=== PATIENT | female | born 1995 | race Caucasian/White ===

== ENCOUNTER 2018-10-12 17:39 | Emergency (ER) | payer SELFPAY ==
[2018-10-12 19:46] VITALS: O2SAT 100
[2018-10-12 19:53] LABS: SQUAMOUS EPITHIAL < 1 /hpf (0-5); URINE BILIRUBIN NEGATIVE (NEGATIVE); URINE BLOOD NEGATIVE (NEGATIVE); URINE CLARITY Clear (Clear); URINE COLOR Yellow (YELLOW); URINE GLUCOSE (UA) NORMAL (Normal); URINE LEUKOCYTE ESTERASE NEG Leu/uL (Negative); URINE PROTEIN NEGATIVE (NEGATIVE); URINE UROBILINOGEN NORMAL mg/dL (0.2-1.0)
[2018-10-12 20:03] LABS: HCG,QUALITATIVE URINE NEGATIVE (NEGATIVE)
[2018-10-12 20:06] LABS: BARBITURATES, UR NEGATIVE (NEGATIVE); BENZODIAZEPINES, UR NEGATIVE (NEGATIVE); OPIATES, UR NEGATIVE (NEGATIVE); PHENCYCLIDINE, UR NEGATIVE (NEGATIVE)
--- NOTE | 2018-10-12 20:27 | C.PDOC ---
History Of Present Illness Patient is a 23 year old female who presents to the ED c/o sudden onset chills, described as being "cold then hot" since this morning. Patient notes associated sweat episodes, feels as if she has irregular episodes, and states that she has been shaking so much she almost lost consciousness. She denies any vomiting, diarrhea, rash, fever, CP, SOB, numbness, weakness, or recent travel. Time Seen by Provider: 10/12/18 18:30 Chief Complaint (Nursing): Medical Clearance History Per: Patient History/Exam Limitations: no limitations Onset/Duration Of Symptoms: Hrs Current Symptoms Are (Timing): Still Present Recent travel outside of the [place]: No Additional History Per: Patient Past Medical History Reviewed: Historical Data, Nursing Documentation, Vital Signs Vital Signs: Last Vital Signs Temp 98.4 F 10/12/18 17:58 Pulse 76 10/12/18 17:58 Resp 18 10/12/18 17:58 BP 113/72 10/12/18 17:58 Pulse Ox 100 10/12/18 17:58 - Medical History PMH: No Chronic Diseases Surgical History: Cholecystectomy (2016) Family History: States: No Known Family Hx - Social History Hx Alcohol Use: No Hx Substance Use: No - Immunization History Hx Tetanus Toxoid Vaccination: No Hx Influenza Vaccination: No Hx Pneumococcal Vaccination: No Review Of Systems Except As Marked, All Systems Reviewed And Found Negative. Constitutional: Positive for: Chills, Sweats, Other (shaking). Negative for: Fever Cardiovascular: Positive for: Palpitations. Negative for: Chest Pain Respiratory: Negative for: Shortness of Breath Gastrointestinal: Negative for: Vomiting, Diarrhea Skin: Negative for: Rash Neurological: Negative for: Weakness, Numbness Physical Exam - Physical Exam Appears: Non-toxic, No Acute Distress Skin: Normal Color, Warm, Dry, No Rash Head: Atraumatic, Normacephalic Eye(s): bilateral: Normal Inspection, PERRL, EOMI Ear(s): Bilateral: Normal Oral Mucosa: Moist Throat: No Erythema, No Exudate Neck: Normal ROM, No Midline Cervical Tenderness, No Paracervical Tenderness, Supple Chest: Symmetrical, No Deformity, No Tenderness Cardiovascular: Rhythm Regular, No Friction Rub, No Murmur Respiratory: Normal Breath Sounds, No Rales, No Rhonchi, No Stridor, No Wheezing Gastrointestinal/Abdominal: Soft, No Tenderness Back: Normal Inspection, No CVA Tenderness Extremity: Normal ROM, No Tenderness, No Swelling Neurological/Psych: Oriented x3, Normal Speech, Normal Cognition, Normal Motor Gait: Steady ED Course And Treatment - Laboratory Results Lab Results: Urine Color Yellow (YELLOW) 10/12/18 19:40 Urine Clarity Clear (Clear) 10/12/18 19:40 Urine pH 8.0 (5.0-8.0) 10/12/18 19:40 Ur Specific [place] 1.013 (1.003-1.030) 10/12/18 19:40 Urine Protein Negative mg/dL (NEGATIVE) 10/12/18 19:40 Urine Glucose (UA) Normal mg/dL (Normal) 10/12/18 19:40 Urine Ketones Negative mg/dL (NEGATIVE) 10/12/18 19:40 Urine Blood Negative (NEGATIVE) 10/12/18 19:40 Urine Nitrate Negative (NEGATIVE) 10/12/18 19:40 Urine Bilirubin Negative (NEGATIVE) 10/12/18 19:40 Urine Urobilinogen Normal mg/dL (0.2-1.0) 10/12/18 19:40 Ur Leukocyte Esterase Neg Kaycee/uL (Negative) 10/12/18 19:40 Urine WBC (Auto) < 1 /hpf (0-5) 10/12/18 19:40 Urine RBC (Auto) 1 /hpf (0-3) 10/12/18 19:40 Ur Squamous Epith Cells < 1 /hpf (0-5) 10/12/18 19:40 Urine HCG, Qual Negative (NEGATIVE) 10/12/18 19:40 Urine HCG, Qual Negative (NEGATIVE) 10/12/18 19:40 ECG: Interpreted By [place] ECG Rhythm: Sinus Rhythm ECG Interpretation: Normal Rate From EC (bpm) O2 Sat by Pulse Oximetry: 100 (on RA) Pulse Ox Interpretation: Normal Medical Decision Making Medical Decision Making: Plan: EKG Urinalysis HCG Urinalysis Lab On re-exam, the patient reports improvement of symptoms. Lungs are CTA, heart is RRR, abdomen is soft, non-tender and tolerating PO well. Pt is ambulatory in the ED with steady gait. Follow up with the medical doctor within 1-2 days. Return if worsened. Disposition - Disposition Referrals: [facility] [Outside] [facility]. [facility] [Outside] Disposition: HOME/ ROUTINE Disposition Time: 20:38 Condition: GOOD Additional Instructions: Follow up with the medical doctor within 1-2 days. Return if worsened. Prescriptions: Acetaminophen [Tylenol] 325 mg PO Q6 PRN #30 tab PRN Reason: Fever >100.4 F Instructions: Viral Syndrome (DC) Forms: [employer] ([place]) - Clinical Impression Clinical Impression: Viral syndrome, Palpitations - PA / ANIME DESIGNER / Resident Statement MD/DO has examined the patient and agrees with the treatment plan. - Scribe Statement The provider has reviewed the documentation as recorded by the Kiko Bowen All medical record entries made by the Kiko were at my direction and personally dictated by me. I have reviewed the chart and agree that the record accurately reflects my personal performance of the history, physical exam, medical decision making, and the department course for this patient. I have also personally directed, reviewed, and agree with the discharge instructions and disposition.
--- NOTE | 2018-10-12 20:30 | C.PDOC ---
Time Seen by Provider: 10/12/18 18:30 Chief Complaint (Nursing): Medical Clearance Past Medical History Vital Signs: Last Vital Signs Temp 98.4 F 10/12/18 17:58 Pulse 76 10/12/18 17:58 Resp 18 10/12/18 17:58 BP 113/72 10/12/18 17:58 Pulse Ox 100 10/12/18 17:58 Surgical History: Cholecystectomy (2016) - Social History Hx Alcohol Use: No Hx Substance Use: No - Immunization History Hx Tetanus Toxoid Vaccination: No Hx Influenza Vaccination: No Hx Pneumococcal Vaccination: No ED Course And Treatment - Laboratory Results Lab Results: Urine Color Yellow (YELLOW) 10/12/18 19:40 Urine Clarity Clear (Clear) 10/12/18 19:40 Urine pH 8.0 (5.0-8.0) 10/12/18 19:40 Ur Specific [place] 1.013 (1.003-1.030) 10/12/18 19:40 Urine Protein Negative mg/dL (NEGATIVE) 10/12/18 19:40 Urine Glucose (UA) Normal mg/dL (Normal) 10/12/18 19:40 Urine Ketones Negative mg/dL (NEGATIVE) 10/12/18 19:40 Urine Blood Negative (NEGATIVE) 10/12/18 19:40 Urine Nitrate Negative (NEGATIVE) 10/12/18 19:40 Urine Bilirubin Negative (NEGATIVE) 10/12/18 19:40 Urine Urobilinogen Normal mg/dL (0.2-1.0) 10/12/18 19:40 Ur Leukocyte Esterase Neg Kaycee/uL (Negative) 10/12/18 19:40 Urine WBC (Auto) < 1 /hpf (0-5) 10/12/18 19:40 Urine RBC (Auto) 1 /hpf (0-3) 10/12/18 19:40 Ur Squamous Epith Cells < 1 /hpf (0-5) 10/12/18 19:40 Urine HCG, Qual Negative (NEGATIVE) 10/12/18 19:40 Urine HCG, Qual Negative (NEGATIVE) 10/12/18 19:40 O2 Sat by Pulse Oximetry: 100 Disposition - Disposition
[2018-10-12 20:59] VITALS: BP 109/72; PULSE 62; RESP 16; TEMP 98.8
--- NOTE | 2018-10-14 22:42 | CARD ---
APPROVED REPORT Date of service: 10/12/2018 EKG Measurement Heart [id number] <Conclusion> Normal sinus rhythm Normal ECG
== END 2018-10-12 20:59 | disposition home or self-care (01) ==
LOC: C.ER 17:39
DX: B34.9 Viral infection, unspecified (principal); R00.2 Palpitations
CPT/HCPCS: 81001; 84703; 99282; G0480